=== PATIENT | male | born 1950 | race Caucasian/White ===

== ENCOUNTER 2018-06-08 10:15 | Day surgery (SDC) | payer MEDICARE, BC ==
[2018-06-07 12:24] VITALS: BMI 25.1
[~2018-06-08 10:15] MED LIST: Fentanyl 100 MCG/2 ML VIAL ONE; Fluorouracil 100 MG, Enoxaparin Sodium 25 MG, EPINEPHrine 0.3 MG in Ophthalmic Irrigati... IVPB SCH; Midazolam HCl 2 mg/2 ml Vial ONE
[2018-06-08] MEDS ORDERED: Lidocaine 1% PF 5 ML VIAL ONE (10:20)
[2018-06-08] MEDS ORDERED: Triamcinolone 40 MG/ML VIAL ONE (10:20)
[2018-06-08] MEDS ORDERED: Lidocaine 4% PF 5 ML AMP ONE (10:20)
[2018-06-08] MEDS ORDERED: PROPOFOL 200 MG/20 ML VIAL ONE (10:20)
[2018-06-08] MEDS ORDERED: Bupivacaine 0.75% 10 ML AMP ONE (10:20)
[2018-06-08] MEDS ORDERED: CEFAZOLIN 1 GM VIAL ONE (10:20)
[2018-06-08] MEDS ORDERED: Maxitrol 0.1% Opth Oint 3.5 GM TUBE ONE (10:20)
[2018-06-08] MEDS ORDERED: Phenylephrine 2.5% Ophth Soln 5 ML BOT ONE (10:26)
[2018-06-08] MEDS ORDERED: Cyclopentolate 1% Opth Drop 2 ML BOT ONE (10:26)
--- NOTE | 2018-06-08 14:03 | OP ---
DATE OF PROCEDURE: 06/08/2018 PREOPERATIVE DIAGNOSIS: Rhegmatogenous retinal detachment, right eye. POSTOPERATIVE DIAGNOSIS: Rhegmatogenous retinal detachment, right eye. PROCEDURE PERFORMED: Pars plana vitrectomy, retinal detachment repair, right eye. ANESTHESIA: Local with monitored anesthesia care. COMPLICATIONS: None. PROCEDURE IN DETAIL: The patient was identified in the preoperative holding area. Appropriate informed consent for planned surgical procedure on the right eye had been obtained. The patient was transported to the operative suite, where appropriate cardiopulmonary monitoring established. Local anesthesia obtained using retrobulbar modified Van Lint lid block using 50:50 mixture of 4% lidocaine and 0.75% bupivacaine. The patient was prepped and draped in usual sterile manner for ophthalmic surgery on the right eye. Lid speculum was placed in the right eye. A 25-gauge trocar was placed through the conjunctivae and sclera superotemporally, inferotemporally, and superonasally. Infusion line was placed inferotemporally. Light pipe vitreous cutter inserted into the eye. Core vitrectomy was performed. The vitreous base was trimmed back 360 using a wide-field viewing system. A break was noted at the 10 o'clock position. Posterior drained retinotomy was created inferior to the nerve. Complete air-fluid exchange was performed with 10 minutes being left for fluid to drain posteriorly. Laser was placed superior, 270 degrees. 28% sulfur hexafluoride gas was infused into the eye supranasally. Sclerotomy was suture closed. Trocars were removed. Eye was noted to retain pressure well. Retrobulbar Kenalog and subconjunctival Ancef were placed. Antibiotic ointment was placed and the eye was patched and shielded. The patient was advised to position left side down, followup appointment with Dr. Hancock. Job ID: [id number]
== END 2018-06-08 14:16 | disposition home or self-care (01) ==
LOC: EDSEX → SDC 10:15
PROVIDERS: ATTEND Ophthalmology Retina Specialist
PROC: 08T43ZZ Resection of Right Vitreous, Percutaneous Approach (ICD-10-PCS; principal; 2018-06-08)
DX: H33.011 Retinal detachment with single break, right eye (principal); E11.9 Type 2 diabetes mellitus without complications; I10 Essential (primary) hypertension; E78.5 Hyperlipidemia, unspecified; F17.220 Nicotine dependence, chewing tobacco, uncomplicated; F32.9 Major depressive disorder, single episode, unspecified; Z79.82 Long term (current) use of aspirin; Z79.84 Long term (current) use of oral hypoglycemic drugs; Z79.899 Other long term (current) drug therapy; Z88.5 Allergy status to narcotic agent
CPT/HCPCS: 67025; J0171; J1650; J2250; J3010; J9190

== ENCOUNTER 2018-07-06 05:37 | Day surgery (SDC) | payer MEDICARE, BC ==
[2018-07-05 14:48] VITALS: BMI 25.1
[2018-07-06] MEDS ORDERED: Fluorouracil 100 MG, Enoxaparin Sodium 25 MG, EPINEPHrine 0.3 MG in Ophthalmic Irrigati... IRR SCH (06:00)
[2018-07-06] MEDS ORDERED: Cyclopentolate 1% Opth Drop 2 ML BOT ONE (06:05)
[2018-07-06] MEDS ORDERED: Phenylephrine 2.5% Ophth Soln 5 ML BOT ONE (06:05)
[2018-07-06] MEDS ORDERED: Midazolam HCl 2 mg/2 ml Vial ONE (06:51)
--- NOTE | 2018-07-06 09:13 | OP ---
DATE OF PROCEDURE: 07/06/2018 PREOPERATIVE DIAGNOSIS: Rhegmatogenous retinal detachment, right eye. POSTOPERATIVE DIAGNOSIS: Rhegmatogenous retinal detachment, right eye. PROCEDURES PERFORMED: Pars plana vitrectomy, retinal detachment repair, right eye. ANESTHESIA: Local with monitored anesthesia care. DESCRIPTION OF PROCEDURE: The patient was identified in preoperative holding area. Appropriate informed consent for the planned surgical procedure on the right eye had been obtained. The patient was transported to the operative suite where appropriate cardiopulmonary monitoring was established. Local anesthesia obtained using retrobulbar-modified Van Lint lid block using 50:50 mixture of 4% lidocaine, 0.75% bupivacaine. The patient was prepped and draped in usual sterile manner for ophthalmic surgery of right eye. Lid speculum was placed in the right eye. A 25-gauge trocar was placed through the conjunctiva and sclera supratemporally, inferotemporally, and supranasally. Infusion line was placed inferotemporally. Light pipe vitreous cutter was inserted into the eye. Core vitrectomy was performed. Residual vitreous was trimmed from the inferior retina. Complete air-fluid exchange was performed with 10 minutes being left for fluid to drain posteriorly. 180 laser was placed inferior retina and around the posterior drained retinotomy. 15% perfluoropropane gas was infused in the eye, sclerotomy was suture closed. Retrobulbar Kenalog and subconjunctival Ancef were placed. Antibiotic ointment was placed and the eye was patched and shielded. The patient was awakened, taken to postop recovery unit in good condition, having suffered no immediate perioperative complications. The patient was instructed to keep the patch and shield on, avoid lifting, bending. Follow up in the morning with Dr. Hancock. Job ID: [id number]
[2018-07-06] MEDS ORDERED: Lidocaine 1% PF 5 ML VIAL ONE (10:41)
[2018-07-06] MEDS ORDERED: CEFAZOLIN 1 GM VIAL ONE (10:41)
[2018-07-06] MEDS ORDERED: Bupivacaine 0.75% 10 ML AMP ONE (10:41)
[2018-07-06] MEDS ORDERED: Triamcinolone 40 MG/ML VIAL ONE (10:41)
[2018-07-06] MEDS ORDERED: Maxitrol 0.1% Opth Oint 3.5 GM TUBE ONE (10:41)
[2018-07-06] MEDS ORDERED: Lidocaine 4% PF 5 ML AMP ONE (10:41)
[2018-07-06] MEDS ORDERED: PROPOFOL 200 MG/20 ML VIAL ONE (10:41)
== END 2018-07-06 09:15 | disposition home or self-care (01) ==
LOC: SDC 05:37
PROVIDERS: ATTEND Ophthalmology Retina Specialist
PROC: 08T43ZZ Resection of Right Vitreous, Percutaneous Approach (ICD-10-PCS; principal; 2018-07-06)
DX: H33.001 Unspecified retinal detachment with retinal break, right eye (principal); Z88.5 Allergy status to narcotic agent
CPT/HCPCS: 67025; J0171; J1650; J2250; J9190

== ENCOUNTER 2019-01-02 09:32 | Outpatient (CLI) | payer MEDICARE, BC ==
--- NOTE | 2019-01-02 09:54 | RAD ---
3 views lumbar spine:: 01/02/2019 COMPARISON: None HISTORY: Low back pain with bilateral lower extremity radiculopathy FINDINGS: Lateral flexion, neutral, and extension views provided. There is a screw and washer associa slade with the ventral aspect of the L4 vertebral body. There is multilevel lower lumbar spine facet hypertrophy, most prominent at the L4-5 and L5-S1 levels . Neutral lateral imaging demonstrates no significant anterolisthesis or retrolisthesis. At L1-2 and L2-3 there is disc space narrowing with degenerative endplate change as well as anterior osteophyte formation. The flexion imaging and the extension imaging demonstrates no significant anterolisthesis or retrolisthesis. IMPRESSION: Postoperative and degenerative change of the lumbar spine as above.
[2019-01-02 10:03] LABS: Estimated GFR-MDRD - POC Greater than 90
--- NOTE | 2019-01-02 11:00 | MRI ---
MRI LUMBAR SPINE WITH AND WITHOUT CONTRAST: DATE: 01/02/2019 HISTORY: 68-year-old male with lumbar radiculopathy and low back pain. COMPARISON: None available TECHNIQUE: Multiple sequences obtained in axial and sagittal planes, pre and post IV injection of gadolinium-bas ed contrast agent. FINDINGS: Mild left lateral curvature of lumbar spine. There is a transitional level at the lumbosacral junction. For the purposes of this report, the follo wing, somewhat arbitrary designation of levels will be used: The transitional level will be designated as a partially sacralized L5. The level with obliterated disc space with ankylosis between the endplates will be designated as L4-5. L5-S1 disc space is hypoplastic. There is pseudoarticulation between the dysplastic enlarged left L5 transverse process and the left sacral ala . On the sagittal images, the images do not extend far enough laterally to evaluate the right L5-S1 pseudoarticulation. Vertebral body heights are maintained. There is metallic hardware from anterior approach, at the L4 v ertebral body causing magnetic susceptibility artifact, partially obscuring bone marrow detail of L4 vertebral body and upper portion of L5. No unexpected abnormal enhancement identified. T12-L1:Normal L1-2:Moderate disc space narrowing, especially on the right side where there are Modic type I marrow edema changes of the endplates, along the concavity of the lateral curvature. Diffuse disc bulge. Conus medullaris terminates slightly superior to this. Mild bilateral facet DJD. No high-grade neural foraminal stenosis. Mild central spinal canal stenosis. L2-3:Mild to moderate disc space narrowing. Prominent diffuse disc bulge. Moderate ligamentum flavum thickening and mild bilateral degenerative facet hypertrophy. Moderate central spinal canal stenosis. Posterior epidural fat pad. Moderate to severe thecal sac stenosis. Mild right neural laz inal stenosis. Mild to moderate left neural foraminal stenosis. L3-4:Minimal disc space narrowing. Moderate size diffuse disc bulge. Mild right neural foraminal sten osis. Moderate to severe left neural foraminal stenosis. Moderate ligamentum flavum thickening. Mild to moderate bilateral degenerative facet hypertrophy. Severe central spinal canal stenosis. L4-5:Ankylosis across disc space successful. No right neural foraminal stenosis. Mild to moderate lef t neural foraminal stenosis. No central stenosis. Left hemilaminectomy defect. L5-S1:Hypoplastic bilateral facet joints. Mildly hypoplastic disc space. No central or neural foramin al stenosis. IMPRESSION: 1) transitional level at lumbosacral junction, arbitrarily designated as a partially sacralized L5. 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 3) prior left hemilaminectomy at L4-5. 4) severe central spinal canal stenosis at L3-4.
== END 2019-01-02 09:33 | disposition home or self-care (01) ==
LOC: TBSIIMAG 09:32
PROVIDERS: ATTEND Neurological Surgery
DX: M47.26 Other spondylosis with radiculopathy, lumbar region (principal); M48.061 Spinal stenosis, lumbar region without neurogenic claudication; Z98.1 Arthrodesis status; Z98.890 Other specified postprocedural states
CPT/HCPCS: 72100; 72158; 82565

== ENCOUNTER 2021-07-27 14:42 | Outpatient (CLI) | payer MEDICARE, BC ==
[2021-07-28 00:05] LABS: SARS-CoV-2 PCR by NAA Not Detected (NotDetected)
== END 2021-07-27 14:43 | disposition home or self-care (01) ==
LOC: LABBT 14:42
PROVIDERS: ATTEND Ophthalmology Retina Specialist
DX: Z20.822 Contact with and (suspected) exposure to COVID-19 (principal)
CPT/HCPCS: U0003; U0005

== ENCOUNTER 2021-07-28 09:14 | Day surgery (SDC) | payer MEDICARE, BC ==
[2021-07-27 16:05] VITALS: BMI 24.4
[~2021-07-28 09:14] MED LIST changes: +EPINEPHrine 0.3 MG in Ophthalmic Irrigation Solution 500 ML IRR SCH; -Fentanyl 100 MCG/2 ML VIAL ONE; -Fluorouracil 100 MG, Enoxaparin Sodium 25 MG, EPINEPHrine 0.3 MG in Ophthalmic Irrigati... IVPB SCH; +fentaNYL Citrate/PF 100 MCG/2 ML SYRINGE ONE
[2021-07-28] MEDS ORDERED: Cyclopentolate 1% Opth Drop 2 ML BOT ONE (10:06)
[2021-07-28] MEDS ORDERED: Phenylephrine 2.5% Ophth Soln 5 ML BOT ONE (10:07)
[2021-07-28] MEDS ORDERED: CEFAZOLIN 1 GM VIAL ONE (10:33)
[2021-07-28] MEDS ORDERED: Bupivacaine 0.75% 10 ML VIAL ONE (10:33)
[2021-07-28] MEDS ORDERED: PROPOFOL 200 MG/20 ML VIAL ONE (10:33)
[2021-07-28] MEDS ORDERED: Lidocaine 4% PF 5 ML AMP ONE (10:33)
[2021-07-28] MEDS ORDERED: Maxitrol 0.1% Opth Oint 3.5 GM TUBE ONE (10:33)
[2021-07-28] MEDS ORDERED: Lidocaine 1% PF 5 ML VIAL ONE (10:33)
[2021-07-28] MEDS ORDERED: Triamcinolone 40 MG/ML VIAL ONE (10:33)
== END 2021-07-28 12:20 | disposition home or self-care (01) ==
LOC: SDC 09:14
PROVIDERS: ATTEND Ophthalmology Retina Specialist
PROC: 08T53ZZ Resection of Left Vitreous, Percutaneous Approach (ICD-10-PCS; principal; 2021-07-28)
PROC: 08QF3ZZ Repair Left Retina, Percutaneous Approach (ICD-10-PCS; 2021-07-28)
DX: H33.022 Retinal detachment with multiple breaks, left eye (principal); I10 Essential (primary) hypertension; E78.5 Hyperlipidemia, unspecified; E11.9 Type 2 diabetes mellitus without complications; N40.1 Benign prostatic hyperplasia with lower urinary tract symptoms; R35.1 Nocturia; F17.220 Nicotine dependence, chewing tobacco, uncomplicated; Z79.82 Long term (current) use of aspirin; Z79.84 Long term (current) use of oral hypoglycemic drugs; Z79.899 Other long term (current) drug therapy; Z88.5 Allergy status to narcotic agent
CPT/HCPCS: 67025; J0171; J0690; J2250; J2704; J3301; J3490

== ENCOUNTER 2022-11-09 10:00 | Outpatient (CLI) | payer MEDICARE, BC | END 2022-11-09 10:01 | disposition home or self-care (01) | LOC: DTY/OP 10:00 | PROVIDERS: ATTEND Family Medicine | DX: E11.9 Type 2 diabetes mellitus without complications (principal) | CPT/HCPCS: 97802 ==

== ENCOUNTER 2023-05-23 11:25 | Outpatient (CLI) | payer MEDICARE, BC | END 2023-05-23 11:26 | disposition home or self-care (01) | LOC: BICRAD 11:25 | PROVIDERS: ATTEND Family Medicine | DX: M25.561 Pain in right knee (principal) ==